=== PATIENT | male | born 1975 | race Caucasian/White ===

== ENCOUNTER 2019-03-09 09:39 | Emergency (ER) | payer OTHER, SELFPAY ==
[2019-03-09 10:00] VITALS: BP 110/71; PULSE 45; RESP 13; TEMP 36.4; O2SAT 99
--- NOTE | 2019-03-09 10:10 | ED.WOUNDLAC ---
HPI - Wound/Laceration General Chief Complaint: Wound/Laceration Stated Complaint: Hit head on wall,laceration on face Time Seen by Provider: 03/09/19 09:40 Source: patient Mode of arrival: Ambulatory Limitations: no limitations History of Present Illness HPI narrative: 43-year-old male nonsmoker with benign medical history presents for evaluation of a superficial laceration above left eye suffered last night when he walked into a wall when trying to put laundry away in the dark. He denies any loss of consciousness nausea, vomiting or blurred vision. He does not use blood thinners and denies use of alcohol or street drugs. He has no neurologic findings. Onset (ago): hour(s) Location: face Place: home Patient tetanus UTD: Yes Context: accidental Associated symptoms: none Treatments prior to arrival: bandage Review of Systems Constitutional Constitutional: Denies chills, Denies fatigue, Denies fever(s), Denies frequent falls, Denies lethargy and Denies weakness Eyes Eyes: Denies change in vision, Denies eye discharge, Denies irritation and Denies loss of vision ENT Ears, Nose, Mouth, and Throat: Denies change in voice, Denies dizziness, Denies neck pain, Denies sore throat and Denies throat swelling Cardiovascular Cardiovascular: Denies chest pain, Denies irregular heart rhythm, Denies lightheadedness, Denies palpitations, Denies dyspnea, Denies dyspnea on exertion and Denies orthopnea Respiratory Respiratory: Denies cough, Denies dyspnea, Denies dyspnea on exertion and Denies wheezing Gastrointestinal Gastrointestinal: Denies abdominal pain, Denies change in bowel habits, Denies diarrhea, Denies nausea and Denies vomiting Genitourinary Genitourinary: Denies hematuria, Denies flank pain, Denies urinary incontinence and Denies urinary urgency Musculoskeletal Musculoskeletal: Denies back pain, Denies muscle weakness, Denies neck pain, Denies numbness and Denies tingling Integumentary/Breasts Skin/Breast: Denies pruritus, Denies erythema, Denies rash and Reports wounds Neurologic Neurologic: Denies behavioral changes, Denies confusion, Denies dizziness, Denies frequent falls, Denies loss of vision, Denies numbness, Denies tingling and Denies weakness Psychiatric Psychiatric: Denies anxiety, Denies behavioral changes, Denies confusion, Denies depression, Denies homicidal ideation and Denies suicidal ideation Endocrine Endocrine: Denies fatigue, Denies flushing and Denies palpitations Hematologic/Lymphatic Hematologic/Lymphatic: Denies easy bruising Allergic/Immunologic Allergic/Immunologic: Denies urticaria, Denies throat swelling and Denies wheezing PFSH Social History Smoking Status: Never smoker Social History Smoking Status: Never smoker Exam Narrative Exam Narrative: GEN: AOx3 and in mild distress, GCS 15 HEAD: 1.5 superficial, vertically oriented laceration above the left eye with minimal active bleeding, it will need few sutures. No significant hematoma or suggestion of depressed skull fracture EYES: Pupils are equal, round, and reactive to light and accommodation. Extraoccular muscles are intact bilaterally. There is no subconjunctival hemorrhage or exudate. CHEST: Lungs are clear to auscultation bilaterally and free of wheezes, rales, or rhonchi. Heart rate is regular rhythm, there are no murmurs, clicks, rubs, or gallops. There is no chest wall tenderness. ABD: Abdomen is soft and nontender. There is no guarding or rebound. Bowel sounds are normal in all 4 quadrants. There is no mass or organomegaly. EXT: Full painless ROM of all extremities with no loss of sensation or strength. SKIN: Warm, pink, and dry. No erythema or rash Initial Vital Signs Initial Vital Signs: Vital Signs Temperature 97.6 F 03/09/19 10:00 Pulse Rate 45 L 03/09/19 10:00 Respiratory Rate 13 03/09/19 10:00 Blood Pressure 110/71 03/09/19 10:00 Pulse Oximetry 99 03/09/19 10:00 Procedures Laceration Repair Laceration 1: Site: face Side (If applicable): left Size (cm): 1.5 Description: linear Depth: simple, single layer Local Anesthetic: lidocaine 1% and with bicarb Amount of anesthesia used (mL): 3 Skin layer closed with: nylon Size (cm): 6-0 Number of sutures: 3 Technique: simple, interrupted Course Vital Signs Vital signs: Vital Signs - 8 hr 03/09/19 10:00 Temperature 97.6 F Pulse Rate 45 L Respiratory Rate 13 Blood Pressure 110/71 Pulse Oximetry 99 Discharge Plan Departure Patient Disposition: Home Clinical Impression: Laceration Discharge Date/Time: 03/09/19 10:30 Instructions: DI for Laceration Repair Activity Restrictions/Additional Instructions: Please keep the wound clean and dry to the best of your ability. Please monitor for signs of infection such as redness to the skin or increasing pain. Have the sutures removed by your doctor in about 5-7 days. If you are unable to get into your doctor, we would be happy to remove the sutures in that same timeframe. Referrals: Gino Snowden MD [Primary Care Provider] -
== END 2019-03-09 10:30 | disposition home or self-care (01) ==
PROVIDERS: Emergency Provider Emergency Medicine; PCP Internal Medicine
DX: S01.81XA Laceration without foreign body of other part of head, initial encounter (principal); W22.8XXA Striking against or struck by other objects, initial encounter
CPT/HCPCS: 12011; 99283

== ENCOUNTER 2019-11-04 10:21 | Emergency (ER) | payer OTHER, SELFPAY ==
[2019-11-04 10:40] VITALS: BP 116/87; PULSE 39; RESP 14; TEMP 36.6; O2SAT 100; BMI 24.3
--- NOTE | 2019-11-04 10:41 | DI.RAD.S_ITS ---
PROCEDURE: XR FOOT RT MIN 3V INDICATIONS: R great toe injury TECHNIQUE: 3 views of the foot were acquired. COMPARISON: None. FINDINGS: Bones: No dislocations. No suspicious bony lesions. There is a longitudinally oriented fracture involving the proximal phalanx of the first toe likely extending into the distal articular surface. Soft tissues: No tibiotalar joint effusion. Achilles tendon appears normal. IMPRESSION: Great toe proximal phalanx nondisplaced longitudinally oriented intra-articular fracture. Dictated by: Heri Gtz M.D. on 11/04/2019 at 11:10 Approved by: Heri Gtz M.D. on 11/04/2019 at 11:12
--- NOTE | 2019-11-04 10:42 | DI.RAD.S_ITS ---
PROCEDURE: XR HAND RT MIN 3V INDICATIONS: R index finger injury TECHNIQUE: 3 views of the hand(s) acquired. COMPARISON: None. FINDINGS: Bones: No fractures or dislocations. Carpal bones are normally aligned. No suspicious bony lesions. Soft tissues: No suspicious soft tissue calcifications. IMPRESSION: No fracture found. Dictated by: Heri Gtz M.D. on 11/04/2019 at 11:12 Approved by: Heri Gtz M.D. on 11/04/2019 at 11:12
--- NOTE | 2019-11-04 11:03 | ED_ITS ---
HPI - Fall <Elena Maguire PA-C - Last Filed: 11/04/19 16:37> General Chief Complaint: Fall Stated Complaint: Think he broke is right big toe right index finger Time Seen by Provider: 11/04/19 10:41 Source: patient Mode of arrival: Ambulatory History of Present Illness HPI Narrative: This is a well-appearing previously healthy 44-year-old male who had a fall while running last night at about 5:00 p.m. (18 hours ago). He states he went around a corner and the sun was in his eyes and he tripped, injuring his right first toe and catching himself with his right hand. Immediately after he fell he had pain in his right index finger and it looked like the ?middle joint was out of place and pointed upwards and was not at the right angle, so I just grabbed and pulled on it and it seemed to go back into place and was moving normally so I kept going.? The patient states that he then realized he was having pretty significant foot pain in his right toe and he stopped his run. Since that time his right index finger has swollen, his right toe has been painful with walking and he took ibuprofen last night, he has rested and iced both his foot and his right index finger. He denies any other injuries, did not hit his head, did not lose consciousness, denies any prodrome of dizziness or palpitations prior to his fall, states that it was a mechanical fall and he has otherwise been in his normal state of health. MD complaint: fall Onset (ago): hour(s) (18) Fall from: standing (while runnning) Fall witnessed: no Place fall occurred: other (trail) Loss of consciousness: none Prolonged down time: no Symptoms prior to fall: none Context: tripped/slipped Location of injury: other Location of injury - extremities: Right: hand and foot Severity: moderate Severity scale (1-10): 3 Quality: sharp and aching Related Data Allergies Allergy/AdvReac Type Severity Reaction Status Date / Time No Known Drug Allergies Allergy Verified 11/04/19 10:43 Review of Systems <Elena Maguire PA-C - Last Filed: 11/04/19 16:37> Review of Systems Narrative: GENERAL: Denies chills, fatigue, malaise, fever, sweats. HEENT: Denies sinus pain, ear pain, sore throat, difficulty swallowing, dizziness. RESPIRATORY: Denies dyspnea, cough, wheezing, hemoptysis, sputum. CARDIOVASCULAR: Denies chest pain, palpitations, orthopnea, edema, GASTROINTESTINAL: Denies nausea, vomiting, abdominal pain, diarrhea, constipation, melena. : Denies dysuria, frequency, incontinence, hematuria, urinary retention. MUSCULOSKELETAL: denies weakness, Positive for joint pain Right first toe and Right index finger, positive for bony pain right first toe SKIN: Denies rash, skin lesions, or other NEUROLOGIC: Denies weakness, headache, numbness, change in speech, confusion, seizures, incoordination. PSYCHIATRIC: No concerning psychosocial issues. 12 point review of systems is negative except for those stated above Patient History <Elena Maguire PA-C - Last Filed: 11/04/19 16:37> Social History Smoking Status: Never smoker Smoking Status: Never smoker alcohol intake frequency: holidays/special occasions only Substance Use Type: does not use Exam <Elena Maguire PA-C - Last Filed: 11/04/19 16:37> Narrative Exam Narrative: GENERAL: 44 year old patient appears stated age. Well-nourished, well-developed patient, in mild distress. HEAD: Atraumatic. Normocephalic. EYES: Pupils equal round and reactive. Extraocular motions intact. No scleral icterus. No injection or drainage. ENT: Nose without bleeding, purulent drainage. Throat without erythema, tonsillar hypertrophy or exudate. Airway patent. NECK: Trachea midline. Non tender CARDIOVASCULAR: Regular rate and rhythm without murmurs, gallops, or rubs. RESPIRATORY: Clear to auscultation. Breath sounds equal bilaterally. No wheezes, rales, or rhonchi. EXTREMITIES: There is joint tenderness and bony tenderness of the right great toe with palpation of the proximal phalanx, there is mild swelling and associated blue/purple bruising around the MCP and proximal phalanx of the R great toe. There is normal ROM of the right great toe slightly reduced second to pain. Capillary refill is <2 seconds. Right 1st digit is with moderate swelling throughout, tenderness at the PIP, no obvious deformity. capillary refill <2 sec, normal sensation, normal ROM active and passive with good strength 5/5 in fingers/hand/wrist. No edema, or bony tenderness of the ankle or foot. BACK: Nontender without deformity or crepitance. No flank tenderness. NEURO: AOx3. SKIN: No rash or erythema of visible areas Initial Vital Signs Initial Vital Signs: Vital Signs Temperature 97.9 F 11/04/19 10:40 Pulse Rate 39 L 11/04/19 10:40 Respiratory Rate 14 11/04/19 10:40 Blood Pressure 116/87 11/04/19 10:40 Pulse Oximetry 100 11/04/19 10:40 <DO Alexey De La Cruz Last Filed: 11/04/19 17:10> Initial Vital Signs Initial Vital Signs: Vital Signs Temperature 97.9 F 11/04/19 10:40 Pulse Rate 39 L 11/04/19 10:40 Respiratory Rate 14 11/04/19 10:40 Blood Pressure 116/87 11/04/19 10:40 Pulse Oximetry 100 11/04/19 10:40 Course <NHUNG Reyes Last Filed: 11/04/19 16:37> Orders Ordered: ED Orders 11/04/19 10:41 XR foot RT min 3V Stat 11/04/19 10:42 XR hand RT min 3V Stat Vital Signs Vital signs: Vital Signs - 8 hr 11/04/19 10:40 11/04/19 12:39 Temperature 97.9 F Pulse Rate 39 L 50 L Respiratory Rate 14 16 Blood Pressure 116/87 114/82 Pulse Oximetry 100 99 <DO Alexey De La Cruz Last Filed: 11/04/19 17:10> Orders Ordered: ED Orders 11/04/19 10:41 XR foot RT min 3V Stat 11/04/19 10:42 XR hand RT min 3V Stat Vital Signs Vital signs: Vital Signs - 8 hr 11/04/19 10:40 11/04/19 12:39 Temperature 97.9 F Pulse Rate 39 L 50 L Respiratory Rate 14 16 Blood Pressure 116/87 114/82 Pulse Oximetry 100 99 MDM - Fall <NHUNG Reyes Last Filed: 11/04/19 16:37> Differential Diagnosis Differential diagnosis: Likely other (fracture Right great toe; dislocation R first finger) Medical Records Attestation: I reviewed the patient's medical records. Imaging Data Extremity x-ray #1: Attestation: I personally reviewed and interpreted this imaging study as follows: Radiologist's Impression: [address] [address] XRay Report Signed Patient: Shannon Lennon#: [id number] : 1975Acct:[id number] Age/Sex: 44 / MDate of Service: 11/04/19 Loc: ED Accession Number: [id number] Procedure: XR foot RT min 3V Ordering Provider: Tate Mclaughlin D.O. PROCEDURE: XR FOOT RT MIN 3V INDICATIONS: R great toe injury TECHNIQUE: 3 views of the foot were acquired. COMPARISON: None. FINDINGS: Bones: No dislocations. No suspicious bony lesions. There is a longitudinally oriented fracture involving the proximal phalanx of the first toe likely extending into the distal articular surface. Soft tissues: No tibiotalar joint effusion. Achilles tendon appears normal. IMPRESSION: Great toe proximal phalanx nondisplaced longitudinally oriented intra-articular fracture. Dictated by: Heri Gtz M.D. on 11/04/2019 at 11:10 Approved by: Heri Gtz M.D. on 11/04/2019 at 11:12 Extremity x-ray #2: Attestation: I personally reviewed and interpreted this imaging study as follows: Radiologist's Impression: [address] [address] XRay Report Signed Patient: Shannon Lennon#: [id number] : 1975Acct:[id number] Age/Sex: 44 / MDate of Service: 11/04/19 Loc: ED Accession Number: [id number] Procedure: XR hand RT min 3V Ordering Provider: Tate Mclaughlin D.O. PROCEDURE: XR HAND RT MIN 3V INDICATIONS: R index finger injury TECHNIQUE: 3 views of the hand(s) acquired. COMPARISON: None. FINDINGS: Bones: No fractures or dislocations. Carpal bones are normally aligned. No suspicious bony lesions. Soft tissues: No suspicious soft tissue calcifications. IMPRESSION: No fracture found. Dictated by: Heri Gtz M.D. on 11/04/2019 at 11:12 Approved by: Heri Gtz M.D. on 11/04/2019 at 11:12 MDM Narrative Medical decision making narrative: This is a well-appearing 44-year-old with no significant medical history who presents to the emergency department after a fall last night while he was running on a trail. Complaining of right great toe pain as well as right index finger. Right great toe is painful with ambulation and right finger (by his description) was dislocated at the PIP, and he immediately relocated that since that time swelling and pain however normal range of motion. Patient's pain has been well controlled OTC pain medicines. Provided a the flexible splint and rodolfo taping for the right index finger, as as instructions for RA the ED. Provided with an orthopedic shoe for his right foot due to his right toe fracture, advised to follow-up with orthopedics in 1-3 days for additional evaluation. All patient's questions were answered. Discharge Plan Departure Patient Disposition: Home Clinical Impression: Fracture of great toe of right foot Qualifiers: Encounter type: initial encounter Fracture type: closed Phalanx: proximal Fracture alignment: nondisplaced Qualified Code(s): S92.414A - Nondisplaced fracture of proximal phalanx of right great toe, initial encounter for closed fracture Dislocation of proximal interphalangeal joint of right index finger Qualifiers: Encounter type: sequela Qualified Code(s): S63.280S - Dislocation of proximal interphalangeal joint of right index finger, sequela Discharge Date/Time: 11/04/19 12:39 Instructions: DI for Toe Fracture, DI for Finger Dislocation, How To Perform RI CE (Rest, Ice, Compress, Elevate) Activity Restrictions/Additional Instructions: Thank you for allowing us to be part of your care today. There is no evidence of an emergent or life threatening illness at this time, but follow up with your doctor in 1-2 days is recommended nonetheless to continue to rule out serious underlying causes of your symptoms. Please call the office for an appointment. Please return to the Emergency Department for any worsening or persistent symptoms. Please take medications as directed. You do have a fracture of your right first toe, we have provided you with a postsurgical shoe, however you have a postsurgical Orthopedic shoe at home that you prefer to use, this is acceptable. It is important for you to follow-up with Orthopedics for further evaluation and reassessment in the next 2-5 days. You should wear the boot or shoe whenever you are up and about and walking, you should also minimize excessive walking until your follow-up appointment. Your right index finger was normal appearing on x-ray, however you likely dislocated it when you fell, and you should wear the splint and keep it rodolfo taped to the adjacent middle finger for the next 5-7 days. I have provided instructions for rest ice compression and elevation and this may also help your finger. You can alternate Tylenol and ibuprofen as needed for pain using [id number] dosing. I am not providing a work note as you stated that you work at home right now I do recommend resting your right index finger and minimize your walking. There are discharge instructions related to both toe fractures and dislocations of the fingers included you can refer to these as well. Referrals: [facility] [Provider Group] (Dr. Junior) Gino Snowden MD [Primary Care Provider] - <Tate Mclaughlin DO - Last Filed: 11/04/19 17:10> Cosign ED Attending Cosignature Attestation: Dr Mclaughlin Co-Sign Statement: I was available for consultation during this patient's emergency department visit. This chart is signed by myself for administrative purposes only. I did not have direct contact with this patient during this visit. They were seen independently by the APC.
[2019-11-04 12:39] VITALS: BP 114/82; PULSE 50; RESP 16; O2SAT 99
== END 2019-11-04 12:39 | disposition home or self-care (01) ==
PROVIDERS: Emergency Provider Student in an Organized Health Care Education/Training Program; PCP Internal Medicine
DX: S92.414A Nondisplaced fracture of proximal phalanx of right great toe, initial encounter for closed fracture (principal); S63.280A Dislocation of proximal interphalangeal joint of right index finger, initial encounter; W01.0XXA Fall on same level from slipping, tripping and stumbling without subsequent striking against object, initial encounter
CPT/HCPCS: 73130; 73630; 99283; 99284

== ENCOUNTER → 2020-08-30 10:50 | Outpatient (CLI) | payer OTHER, SELFPAY ==
[2020-08-30 11:44] LABS: Add Manual Diff / Slide Review NO; Basophils Absolute Auto 0 /uL (0-100); Basophils Percent Auto 0.5 % (0-2); Eosinophils Absolute Auto 400 /uL (0-450); Eosinophils Percent Auto 6.6 % (2-4); Hematocrit 43.3 % (41-53); Hemoglobin 14.9 g/dL (13.5-17.5); Lymphocytes Absolute Auto 2600 /uL (1100-4500); Lymphocytes Percent Auto 43.3 % (25-40); Mean Corpuscular HGB Conc 34.4 % (30-36); Mean Corpuscular Hemoglobin 30.8 PG (26-34); Mean Corpuscular Volume 89.6 fL (80-100); Monocytes Absolute Auto 500 /uL (0-900); Monocytes Percent Auto 8.2 % (3-14); Neutrophils Absolute Auto 2500 /uL (1500-7000); Neutrophils Percent Auto 41.4 % (50-75); Platelet Count 193 X10^3/uL (150-400); Red Blood Cell Count 4.83 X10^6/uL (4.5-5.9)
[2020-08-30 12:27] LABS: Alanine Aminotransferase 34 IU/L (<50); Albumin 4.3 g/dL (3.5-5.0); Albumin Globulin Ratio 1.5 (1.0-2.8); Alkaline Phosphatase 59 U/L (38-126); Aspartate Aminotransferase 50 IU/L (17-59); BUN Creatinine Ratio 22.9 (6-22); Bilirubin Total 0.6 mg/dL (0.2-1.3); Blood Urea Nitrogen 22 mg/dL (9-20); Calcium 9.8 mg/dL (8.4-10.2); Carbon Dioxide 29 mmol/L (22-32); Chloride 102 mmol/L (98-107); Estimated Glomerular Filt Rate > 60.0 mL/min (>60); Globulin 2.9 g/dL (1.7-4.1); Glucose 94 mg/dL (70-100); HEMOLYSIS < 15 (0-50); Potassium 4.3 mmol/L (3.4-5.1); Sodium 136 mmol/L (137-145); Total Protein 7.2 g/dL (6.3-8.2)
[2020-08-30 21:02] LABS: High Sensitivity CRP - Cardiac < 0.3 mg/L (1.0-3.0)
== END ==
PROVIDERS: PCP Internal Medicine; Referring Provider Internal Medicine; Visit Provider Internal Medicine
DX: L40.50 Arthropathic psoriasis, unspecified (principal)
CPT/HCPCS: 36415; 80053; 85025; 86140

== ENCOUNTER → 2022-07-23 09:25 | Outpatient (CLI) | payer OTHER, SELFPAY ==
[2022-07-23 12:23] LABS: Influenza A - CEPHEID Flu A NEGATIVE (NEGATIVE); Influenza B - CEPHEID Flu B NEGATIVE (NEGATIVE); Respiratory Syncytial Virus Negative (Negative)
[2022-07-23 12:25] LABS: COVID-19 CEPHEID 4-PLEX PCR Negative (Negative)
== END ==
PROVIDERS: PCP Internal Medicine; Visit Provider Nurse Practitioner Family
DX: R05.1 Acute cough (principal)
CPT/HCPCS: 0241U

== ENCOUNTER → 2022-10-17 09:03 | Outpatient (CLI) | payer OTHER, SELFPAY ==
[2022-10-17 11:42] LABS: Add Manual Diff / Slide Review NO; Basophils Absolute Auto 0 /uL (0-100); Basophils Percent Auto 0.4 % (0-2); Eosinophils Absolute Auto 400 /uL (0-450); Eosinophils Percent Auto 6.8 % (2-4); Hematocrit 41.8 % (41-53); Hemoglobin 14.4 g/dL (13.5-17.5); Lymphocytes Absolute Auto 2400 /uL (1100-4500); Mean Corpuscular HGB Conc 34.6 % (30-36); Mean Corpuscular Hemoglobin 30.2 PG (26-34); Mean Corpuscular Volume 87.4 fL (80-100); Monocytes Absolute Auto 500 /uL (0-900); Monocytes Percent Auto 9.4 % (3-14); Neutrophils Absolute Auto 2400 /uL (1500-7000); Neutrophils Percent Auto 41.4 % (50-75); Platelet Count 191 X10^3/uL (150-400); Red Blood Cell Count 4.78 X10^6/uL (4.5-5.9); Red Cell Distribution Width 13.3 % (11.6-14.8); White Blood Cell Count 5.8 X10^3/uL (4.5-11.0)
[2022-10-17 12:12] LABS: Alanine Aminotransferase 29 IU/L (<50); Albumin 3.9 g/dL (3.5-5.0); Albumin Globulin Ratio 1.3 (1.0-2.8); Alkaline Phosphatase 76 U/L (38-126); Aspartate Aminotransferase 37 IU/L (17-59); Bilirubin Total 0.6 mg/dL (0.2-1.3); Blood Urea Nitrogen 17 mg/dL (9-20); C-Reactive Protein Quant < 0.5 mg/dL (<1.0); Calcium 9.1 mg/dL (8.4-10.2); Carbon Dioxide 26 mmol/L (22-32); Chloride 105 mmol/L (98-107); Estimated Glomerular Filt Rate > 60 mL/min (>60); Glucose 78 mg/dL (70-100); HEMOLYSIS < 15 (0-50); Sodium 137 mmol/L (137-145); Total Protein 6.9 g/dL (6.3-8.2)
== END ==
PROVIDERS: Referring Provider Internal Medicine; Visit Provider Internal Medicine
DX: L40.50 Arthropathic psoriasis, unspecified (principal)
CPT/HCPCS: 36415; 80053; 85025; 86140

== ENCOUNTER → 2024-07-17 10:36 | Outpatient (CLI) | payer OTHER, SELFPAY ==
[2024-07-17 11:43] LABS: Add Manual Diff / Slide Review NO; Basophils Absolute Auto 0 /uL (0-100); Basophils Percent Auto 0.4 % (0-2); Eosinophils Absolute Auto 300 /uL (0-450); Eosinophils Percent Auto 5.4 % (2-4); Hematocrit 44.5 % (41-53); Hemoglobin 15.2 g/dL (13.5-17.5); Lymphocytes Absolute Auto 2400 /uL (1100-4500); Lymphocytes Percent Auto 40.3 % (25-40); Mean Corpuscular HGB Conc 34.1 % (30-36); Mean Corpuscular Hemoglobin 30.4 PG (26-34); Mean Corpuscular Volume 88.9 fL (80-100); Monocytes Absolute Auto 500 /uL (0-900); Monocytes Percent Auto 8.2 % (3-14); Neutrophils Absolute Auto 2700 /uL (1500-7000); Neutrophils Percent Auto 45.7 % (50-75); Platelet Count 216 X10^3/uL (150-400); Red Cell Distribution Width 13.5 % (11.6-14.8); White Blood Cell Count 5.9 X10^3/uL (4.5-11.0)
[2024-07-17 12:08] LABS: Alanine Aminotransferase 37 IU/L (<50); Albumin 4.6 g/dL (3.5-5.0); Albumin Globulin Ratio 1.4 (1.0-2.8); Alkaline Phosphatase 61 U/L (38-126); Aspartate Aminotransferase 54 IU/L (17-59); BUN Creatinine Ratio 20.4 (6-22); Bilirubin Total 0.8 mg/dL (0.2-1.3); Blood Urea Nitrogen 23 mg/dL (9-20); C-Reactive Protein Quant < 0.5 mg/dL (<1.0); Calcium 9.5 mg/dL (8.4-10.2); Carbon Dioxide 26 mmol/L (22-32); Chloride 101 mmol/L (98-107); Estimated Glomerular Filt Rate > 60 mL/min (>60); Globulin 3.2 g/dL (1.7-4.1); Glucose 86 mg/dL (70-100); HEMOLYSIS < 15 (0-50); Potassium 4.8 mmol/L (3.4-5.1); Sodium 135 mmol/L (137-145); Total Protein 7.8 g/dL (6.3-8.2)
[2024-07-17 12:36] LABS: Hepatitis B Surface Antigen NEGATIVE s/c (NEGATIVE)
[2024-07-18 05:11] LABS: Hepatitis B Core AB w/Reflex Negative (Negative)
== END ==
LOC: LAB 10:37
PROVIDERS: Referring Provider Internal Medicine; Visit Provider Internal Medicine
DX: L40.50 Arthropathic psoriasis, unspecified (principal); M05.79 Rheumatoid arthritis with rheumatoid factor of multiple sites without organ or systems involvement
CPT/HCPCS: 36415; 80053; 85025; 86140; 86480; 86704; 86706; 87340

== ENCOUNTER → 2024-11-24 11:31 | Outpatient (CLI) | payer OTHER, SELFPAY ==
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
== END ==
PROVIDERS: Referring Provider Physician Assistant; Visit Provider Physician Assistant
DX: S49.91XA Unspecified injury of right shoulder and upper arm, initial encounter (principal); V19.9XXA Pedal cyclist (driver) (passenger) injured in unspecified traffic accident, initial encounter
CPT/HCPCS: 73000